=== PATIENT | female | born 1990 | race Caucasian/White ===

== ENCOUNTER 2019-04-14 20:14 | Emergency (ER) | payer OTHER ==
[~2019-04-14] VITALS: Ht 170.2 cm; Wt 117.9 kg
[~2019-04-14 20:14] MED LIST: ACET500 PO; ALBU90OI; ALBU90OI INH; ALBU90OI6 INH; CEPH500 PO; CIPR500 PO; CLIN150 PO; CLIN300 PO; CLON.1 PO; CYCL10 PO; FLINTSTONE VITAMINS; FOLI1 PO; FOLI400 PO; HYDACE25S PR; HYDACE5 PO; IBUHYD PO; KEFLEX; LAMO25 PO; LEVE500 PO; LORA2 PO; MECL25 PO; MULVITMINE; MULVITMINE PO; NAPR500 PO; NEFA100; ONDA4 PO; OXCA150; OXYACE5T PO; PARO20 PO; PHENA200 PO; PHENY100ER PO; PRENZ; PROG100 PO; PROM25 PO; RISP1; RXCLIN PO; RXCYCL10 PO; RXONDA4ODT MM; RXOXYACE PO; VITAMIN K; Verotin-Gr Cap1 EACH PO
[2019-04-14] MEDS ORDERED: ROBITUSSIN COU237 ML PO (21:12)
== END 2019-04-14 21:42 | disposition home or self-care (01) ==
LOC: ER 20:14
DX: J40 Bronchitis, not specified as acute or chronic (principal); Z88.0 Allergy status to penicillin; Z88.8 Allergy status to other drugs, medicaments and biological substances; Z88.5 Allergy status to narcotic agent; Z88.2 Allergy status to sulfonamides; Z88.1 Allergy status to other antibiotic agents; Z79.899 Other long term (current) drug therapy; E11.9 Type 2 diabetes mellitus without complications; G40.909 Epilepsy, unspecified, not intractable, without status epilepticus; J45.909 Unspecified asthma, uncomplicated
CPT/HCPCS: 71046; 99283-25

== ENCOUNTER → 2019-06-18 | Outpatient (CLI) | payer OTHER ==
[~2019-06-18] MED LIST changes: +BASAGLAR K100 UNIT/2; +DESV50; +EPIPEN0.3 MG/0.3 IM; +GLIP5ER PO; +Glucophage1000 MG PO; +OMEPRAZOLE20 MG PO; +ROBITUSSIN COU237 ML PO; +Risperdal0.5 MG PO
== END ==
LOC: LAB 17:58 → LAB SHORT 17:58 → LAB FUT 06-18 16:30
DX: R30.0 Dysuria (principal)
CPT/HCPCS: 87086; 87147

== ENCOUNTER 2019-07-08 17:52 | Emergency (ER) | payer OTHER ==
[~2019-07-08] VITALS: Ht 170.2 cm; Wt 112.0 kg
[~2019-07-08 17:52] MED LIST changes: -BASAGLAR K100 UNIT/2; -DESV50
[2019-07-08 18:43] LABS: Source, Urine Clean Catch
[2019-07-08 18:47] LABS: Bilirubin, Urine Neg (Neg); Blood, Urine Neg (Neg); Glucose Qualitative, Urine 4+ (Neg); Ketones, Urine Neg (Neg); Leukocyte Esterase, Urine Neg (Neg); Nitrite, Urine Neg (Neg); Protein, Urine Neg (Neg); Specific Gravity, Urine 1.015 (1.003-1.022); Urobilinogen, Urine NORM (Normal)
[2019-07-08 18:53] LABS: Appearance, Urine Clear (Clear); Color, Urine Pale Yellow (P-Yellow)
[2019-07-08 19:20] LABS: Base Excess Venous -3.8 mmol/L; Bicarbonate Venous 22.2 mmol/L (24.0-30.0); PCO2 Venous 30.6 mmHg (38-42); PO2 Venous 137 mmHg (38-42); pH Blood Venous 7.43 (7.34-7.37)
[2019-07-08 19:28] LABS: BASOPHILS ABSOLUTE AUTO 0.05 K/mm3 (0.00-0.23); BASOPHILS PERCENT AUTO 1 % (0-2); EOSINOPHILS ABSOLUTE AUTO 0.18 K/mm3 (0.00-0.68); EOSINOPHILS PERCENT AUTO 3 % (0-6); Hematocrit 43.9 % (33.0-51.0); Hemoglobin 14.7 g/dL (11.5-16.0); IMMATURE GRAN ABSOLUTE AUTO 0.01 K/mm3 (0.00-0.10); IMMATURE GRAN PERCENT AUTO 0 % (0-1); LYMPHOCYTES ABSOLUTE AUTO 2.58 K/mm3 (0.84-5.20); LYMPHOCYTES PERCENT AUTO 41 % (21-46); MONOCYTES ABSOLUTE AUTO 0.42 K/mm3 (0.16-1.47); MONOCYTES PERCENT AUTO 7 % (4-13); Mean Corpuscular HGB 28.5 pg (26.0-34.0); Mean Corpuscular HGB Conc 33.5 g/dL (31.5-36.5); Mean Corpuscular Volume 85 fL (80-100); Mean Platelet Volume 9.6 fL (9.1-12.4); NEUTROPHILS ABSOLUTE AUTO 3.12 K/mm3 (1.96-9.15); NEUTROPHILS PERCENT AUTO 49 % (41-73); Platelet Count 339 K/mm3 (150-400); RDW Coefficient Variation 12.4 % (11.7-14.2); RDW Standard Deviation 38.6 fL (35.1-46.3); Red Blood Cell Count 5.15 M/mm3 (3.80-5.20); White Blood Cell Count 6.36 K/mm3 (4.00-11.30)
[2019-07-08 19:38] LABS: Osmolality, Serum 307 mos/KG (275-300)
[2019-07-08 19:57] LABS: Alanine Aminotransfer (ALT/SGP 68 U/L (12-78); Albumin, Blood 3.6 g/dL (3.4-5.0); Albumin/Globulin Ratio 0.9 (0.8-1.8); Alk Phos 93 U/L (50-136); Anion Gap 12 mmol/L (6-16); Aspartate Aminotrans (AST/SGOT 43 U/L (12-37); Bilirubin, Total 0.3 mg/dL (0.1-1.0); Blood Urea Nitrogen 11 mg/dL (8-24); Bun/Creatinine Ratio 17.1 (12.0-20.0); CO2, Blood 20 mmol/L (21-32); Calcium, Blood 9.5 mg/dL (8.5-10.1); Chloride, Blood 100 mmol/L (98-108); Creatinine, Blood 0.64 mg/dL (0.40-1.00); Globulin, Blood 4.1 g/dL (2.2-4.0); Glomerular Filtration Rate >60 (60-); Sodium, Blood 132 mmol/L (136-145); Total Protein, Blood 7.7 g/dL (6.4-8.2)
[2019-07-08 20:04] LABS: Glucose, Blood 549 mg/dL (70-99)
== END 2019-07-08 23:44 | disposition home or self-care (01) ==
LOC: ER 17:52
PROVIDERS: Physician Assistant
DX: E11.65 Type 2 diabetes mellitus with hyperglycemia (principal); E86.0 Dehydration; J45.909 Unspecified asthma, uncomplicated; G40.909 Epilepsy, unspecified, not intractable, without status epilepticus; E78.00 Pure hypercholesterolemia, unspecified; Z87.442 Personal history of urinary calculi; Z88.0 Allergy status to penicillin; Z88.2 Allergy status to sulfonamides; Z88.5 Allergy status to narcotic agent; Z88.8 Allergy status to other drugs, medicaments and biological substances
CPT/HCPCS: 71046; 80053; 81003; 81025; 82803; 82947; 83930; 85025; 93005; 93010; 96361; 96374; 99284-25; J1815; J2405; J7120

== ENCOUNTER 2019-07-13 07:47 | Day surgery (SDC) | payer OTHER ==
[~2019-07-13] VITALS: Ht 170.2 cm; Wt 108.3 kg
[2019-07-13] MEDS ORDERED: DESV50 (08:38)
[2019-07-13] MEDS ORDERED: BASAGLAR K100 UNIT/2 (08:38)
--- NOTE | 2019-07-13 09:01 | NUR ---
07/13/[address] & DR. LEUNG NOTIFIED OF CBG OF 392.
== END 2019-07-13 09:15 | disposition home or self-care (01) ==
LOC: ORSCSDS 07:47
DX: K21.9 Gastro-esophageal reflux disease without esophagitis (principal); Z53.9 Procedure and treatment not carried out, unspecified reason
CPT/HCPCS: 82947; J2001; J2704; J7120

== ENCOUNTER → 2019-10-01 | Outpatient (CLI) | payer OTHER ==
[~2019-10-01] MED LIST changes: +BASAGLAR K100 UNIT/2; +DESV50
== END | disposition home or self-care (01) ==
LOC: LAB EV 11:55 → LAB SHORT 11:55
DX: B37.3 Candidiasis of vulva and vagina (principal)
CPT/HCPCS: 87070; 87147; 87205; 87529

== ENCOUNTER → 2019-11-27 | Outpatient (CLI) | payer OTHER ==
[2019-11-27 11:32] LABS: BASOPHILS ABSOLUTE AUTO 0.07 K/mm3 (0.00-0.23); BASOPHILS PERCENT AUTO 1 % (0-2); EOSINOPHILS ABSOLUTE AUTO 0.23 K/mm3 (0.00-0.68); EOSINOPHILS PERCENT AUTO 3 % (0-6); Hematocrit 43.9 % (33.0-51.0); Hemoglobin 15.2 g/dL (11.5-16.0); IMMATURE GRAN ABSOLUTE AUTO 0.01 K/mm3 (0.00-0.10); IMMATURE GRAN PERCENT AUTO 0 % (0-1); LYMPHOCYTES PERCENT AUTO 42 % (21-46); MONOCYTES ABSOLUTE AUTO 0.42 K/mm3 (0.16-1.47); MONOCYTES PERCENT AUTO 6 % (4-13); Mean Corpuscular HGB 29.5 pg (26.0-34.0); Mean Corpuscular HGB Conc 34.6 g/dL (31.5-36.5); Mean Corpuscular Volume 85 fL (80-100); Mean Platelet Volume 9.3 fL (9.1-12.4); NEUTROPHILS ABSOLUTE AUTO 3.68 K/mm3 (1.96-9.15); NEUTROPHILS PERCENT AUTO 49 % (41-73); Platelet Count 393 K/mm3 (150-400); RDW Coefficient Variation 12.4 % (11.7-14.2); RDW Standard Deviation 38.3 fL (35.1-46.3); Red Blood Cell Count 5.15 M/mm3 (3.80-5.20); White Blood Cell Count 7.61 K/mm3 (4.00-11.30)
[2019-11-27 11:42] LABS: Alanine Aminotransfer (ALT/SGP 58 U/L (12-78); Albumin, Blood 3.9 g/dL (3.4-5.0); Albumin/Globulin Ratio 0.9 (0.8-1.8); Alk Phos 86 U/L (40-126); Anion Gap 12 mmol/L (6-16); Aspartate Aminotrans (AST/SGOT 39 U/L (12-37); Bilirubin, Total 0.3 mg/dL (0.1-1.0); Blood Urea Nitrogen 18 mg/dL (8-24); Bun/Creatinine Ratio 21.4 (12.0-20.0); CO2, Blood 25 mmol/L (21-32); Calcium, Blood 9.4 mg/dL (8.5-10.1); Chloride, Blood 103 mmol/L (98-108); Creatinine, Blood 0.84 mg/dL (0.40-1.00); Globulin, Blood 4.4 g/dL (2.2-4.0); Glomerular Filtration Rate >60 (60-); Glucose, Blood 260 mg/dL (70-99); Potassium, Blood 4.2 mmol/L (3.5-5.5); Sodium, Blood 140 mmol/L (136-145); Total Protein, Blood 8.3 g/dL (6.4-8.2)
== END | disposition home or self-care (01) ==
LOC: LAB SHORT 11:28 → LAB EV 11:28
PROVIDERS: Physician Assistant
DX: R11.2 Nausea with vomiting, unspecified (principal)
CPT/HCPCS: 80053; 83690; 85025

== ENCOUNTER 2020-05-18 16:53 | Emergency (ER) | payer OTHER ==
[~2020-05-18] VITALS: Ht 170.2 cm; Wt 106.4 kg
[~2020-05-18 16:53] MED LIST changes: -DESV50
[2020-05-18 17:25] LABS: BASOPHILS ABSOLUTE AUTO 0.07 K/mm3 (0.00-0.23); BASOPHILS PERCENT AUTO 1 % (0-2); EOSINOPHILS ABSOLUTE AUTO 0.17 K/mm3 (0.00-0.68); EOSINOPHILS PERCENT AUTO 2 % (0-6); Hematocrit 46.6 % (33.0-51.0); Hemoglobin 15.8 g/dL (11.5-16.0); IMMATURE GRAN ABSOLUTE AUTO 0.02 K/mm3 (0.00-0.10); IMMATURE GRAN PERCENT AUTO 0 % (0-1); LYMPHOCYTES PERCENT AUTO 37 % (21-46); MONOCYTES ABSOLUTE AUTO 0.43 K/mm3 (0.16-1.47); MONOCYTES PERCENT AUTO 5 % (4-13); Mean Corpuscular HGB 29.6 pg (26.0-34.0); Mean Corpuscular HGB Conc 33.9 g/dL (31.5-36.5); Mean Corpuscular Volume 87 fL (80-100); Mean Platelet Volume 9.4 fL (9.1-12.4); NEUTROPHILS ABSOLUTE AUTO 4.84 K/mm3 (1.96-9.15); NEUTROPHILS PERCENT AUTO 56 % (41-73); Platelet Count 386 K/mm3 (150-400); RDW Coefficient Variation 12.3 % (11.7-14.2); RDW Standard Deviation 39.3 fL (35.1-46.3); Red Blood Cell Count 5.33 M/mm3 (3.80-5.20); White Blood Cell Count 8.73 K/mm3 (4.00-11.30)
[2020-05-18] MEDS ORDERED: CIME400 PO (17:54)
[2020-05-18 18:23] LABS: Alanine Aminotransfer (ALT/SGP 60 U/L (12-78); Albumin, Blood 3.7 g/dL (3.4-5.0); Albumin/Globulin Ratio 0.8 (0.8-1.8); Alk Phos 116 U/L (50-136); Anion Gap 9 mmol/L (6-16); Aspartate Aminotrans (AST/SGOT 44 U/L (12-37); Bilirubin, Total 0.6 mg/dL (0.1-1.0); Blood Urea Nitrogen 12 mg/dL (8-24); Bun/Creatinine Ratio 19.1 (12.0-20.0); CO2, Blood 24 mmol/L (21-32); Calcium, Blood 9.2 mg/dL (8.5-10.1); Chloride, Blood 101 mmol/L (98-108); Creatinine, Blood 0.63 mg/dL (0.40-1.00); Globulin, Blood 4.6 g/dL (2.2-4.0); Glomerular Filtration Rate >60 (60-); Glucose, Blood 403 mg/dL (70-99); Potassium, Blood 4.1 mmol/L (3.5-5.5); Sodium, Blood 134 mmol/L (136-145); Total Protein, Blood 8.3 g/dL (6.4-8.2)
[2020-05-18] MEDS ORDERED: CYCL10 PO (20:45)
[2020-05-18 20:46] LABS: Source, Urine Voided
[2020-05-18] MEDS ORDERED: ZOFRAN4 MG PO (20:47)
[2020-05-18] MEDS ORDERED: BENZONATATE100 MG PO (20:48)
[2020-05-18] MEDS ORDERED: NOVOLIN 70100 UNIT/4 SC (20:52)
[2020-05-18 20:59] LABS: Bilirubin, Urine Neg (Neg); Blood, Urine Neg (Neg); Glucose Qualitative, Urine 4+ (Neg); Ketones, Urine Neg (Neg); Leukocyte Esterase, Urine Neg (Neg); Nitrite, Urine Neg (Neg); Protein, Urine Neg (Neg); Specific Gravity, Urine 1.015 (1.003-1.022); Urobilinogen, Urine NORM (Normal)
[2020-05-18 21:02] LABS: Appearance, Urine Clear (Clear); Color, Urine Yellow (P-Yellow)
[2020-05-18] MEDS ORDERED: Ativan0.5 MG PO (21:05)
[2020-05-18] MEDS ORDERED: DESVENLAFAXINE100 MG PO (21:09)
[2020-05-18] MEDS ORDERED: Lipitor20 MG PO (21:12)
== END 2020-05-18 21:47 | disposition home or self-care (01) ==
LOC: ER 16:53
PROVIDERS: Emergency Medicine; Physician Assistant
DX: E11.65 Type 2 diabetes mellitus with hyperglycemia (principal); J45.909 Unspecified asthma, uncomplicated; Z79.4 Long term (current) use of insulin; Z79.899 Other long term (current) drug therapy; Z87.442 Personal history of urinary calculi; Z88.0 Allergy status to penicillin; Z88.5 Allergy status to narcotic agent; Z88.2 Allergy status to sulfonamides
CPT/HCPCS: 36415; 80053; 81003; 82947; 85025; 96360; 96361; 99284-25; J1815; J7030

== ENCOUNTER → 2020-09-02 | Outpatient (CLI) | payer OTHER ==
[~2020-09-02] MED LIST changes: +ATOR80 PO; +Ativan0.5 MG PO; +Ativan1 MG PO; +BASAGLAR K100 UNIT/1 SC; +BENZONATATE100 MG PO; +CIME400 PO; +DESVENLAFAXINE100 MG PO; +FLUO10 PO; +HUMALOG KW100 UNIT/1 SC; +HYDR1TAB94 PO; +LORA10ER PO; +NOVOLIN 70100 UNIT/4 SC; +REPA2 PO; +RISP1 PO; +TAMSULOSIN HCL0.4 M1 PO; +TOUJEO MAX300 UNIT/2 SC; +ZOFRAN4 MG PO
[2020-09-02 14:43] LABS: BASOPHILS ABSOLUTE AUTO 0.07 K/mm3 (0.00-0.23); BASOPHILS PERCENT AUTO 1 % (0-2); EOSINOPHILS ABSOLUTE AUTO 0.18 K/mm3 (0.00-0.68); EOSINOPHILS PERCENT AUTO 2 % (0-6); Hematocrit 47.8 % (33.0-51.0); IMMATURE GRAN ABSOLUTE AUTO 0.04 K/mm3 (0.00-0.10); IMMATURE GRAN PERCENT AUTO 1 % (0-1); LYMPHOCYTES ABSOLUTE AUTO 2.84 K/mm3 (0.84-5.20); LYMPHOCYTES PERCENT AUTO 38 % (21-46); MONOCYTES ABSOLUTE AUTO 0.46 K/mm3 (0.16-1.47); MONOCYTES PERCENT AUTO 6 % (4-13); Mean Corpuscular HGB 29.2 pg (26.0-34.0); Mean Corpuscular HGB Conc 33.5 g/dL (31.5-36.5); Mean Corpuscular Volume 87 fL (80-100); Mean Platelet Volume 10.1 fL (9.1-12.4); NEUTROPHILS ABSOLUTE AUTO 3.92 K/mm3 (1.96-9.15); NEUTROPHILS PERCENT AUTO 52 % (41-73); Platelet Count 405 K/mm3 (150-400); RDW Coefficient Variation 12.3 % (11.7-14.2); RDW Standard Deviation 39.6 fL (35.1-46.3); Red Blood Cell Count 5.48 M/mm3 (3.80-5.20); White Blood Cell Count 7.51 K/mm3 (4.00-11.30)
[2020-09-02 14:53] LABS: Alanine Aminotransfer (ALT/SGP 67 U/L (12-78); Albumin, Blood 3.7 g/dL (3.4-5.0); Albumin/Globulin Ratio 0.8 (0.8-1.8); Alk Phos 107 U/L (50-136); Anion Gap 10 mmol/L (6-16); Aspartate Aminotrans (AST/SGOT 39 U/L (12-37); Bilirubin, Total 0.4 mg/dL (0.1-1.0); Blood Urea Nitrogen 22 mg/dL (8-24); Bun/Creatinine Ratio 33.5 (12.0-20.0); CO2, Blood 22 mmol/L (21-32); Calcium, Blood 9.6 mg/dL (8.5-10.1); Chloride, Blood 100 mmol/L (98-108); Creatinine, Blood 0.66 mg/dL (0.40-1.00); Globulin, Blood 4.6 g/dL (2.2-4.0); Glomerular Filtration Rate >60 (60-); Glucose, Blood 498 mg/dL (70-99); Potassium, Blood 4.5 mmol/L (3.5-5.5); Sodium, Blood 132 mmol/L (136-145); Total Protein, Blood 8.3 g/dL (6.4-8.2)
[2020-09-02 16:47] LABS: Candida species (DNA Probe) Negative (NEGATIVE); G. vaginalis (DNA Probe) Negative (NEGATIVE); T. vaginalis (DNA Probe) Negative (NEGATIVE)
== END | disposition home or self-care (01) ==
LOC: LAB SHORT 10:50 → PLD 10:50
PROVIDERS: Family Medicine
DX: E10.65 Type 1 diabetes mellitus with hyperglycemia (principal); R10.2 Pelvic and perineal pain; B37.3 Candidiasis of vulva and vagina
CPT/HCPCS: 80053; 83036; 85025; 87077; 87086; 87186; 87480; 87510; 87660

== ENCOUNTER → 2020-10-19 | Outpatient (CLI) | payer OTHER ==
[~2020-10-19] MED LIST changes: -ATOR80 PO; -Ativan1 MG PO; -BASAGLAR K100 UNIT/1 SC; -FLUO10 PO; -HUMALOG KW100 UNIT/1 SC; -HYDR1TAB94 PO; -LORA10ER PO; +Lipitor20 MG PO; -REPA2 PO; -RISP1 PO; -TAMSULOSIN HCL0.4 M1 PO; -TOUJEO MAX300 UNIT/2 SC
== END ==
LOC: LAB SHORT 08:22
DX: J02.9 Acute pharyngitis, unspecified (principal)
CPT/HCPCS: 87081; 87147

== ENCOUNTER → 2020-11-11 | Outpatient (CLI) | payer OTHER ==
[~2020-11-11] MED LIST changes: +ATOR80 PO; +Ativan1 MG PO; +BASAGLAR K100 UNIT/1 SC; +FLUO10 PO; +HUMALOG KW100 UNIT/1 SC; +HYDR1TAB94 PO; +LORA10ER PO; -Lipitor20 MG PO; +REPA2 PO; +RISP1 PO; +TAMSULOSIN HCL0.4 M1 PO; +TOUJEO MAX300 UNIT/2 SC
[2020-11-13 14:50] LABS: Adenovirus F 40/41 Not Detected (NOT DETECT); Astrovirus Not Detected (NOT DETECT); Campylobacter Sp Not Detected (NOT DETECT); Cryptosporidium Not Detected (NOT DETECT); Cyclospora Cayetanensis Not Detected (NOT DETECT); E. Coli O157 Not Detected (NOT DETECT); Entamoeba Histolytica Not Detected (NOT DETECT); Enteroaggregative E. coli-EAEC Not Detected (NOT DETECT); Enteropathogenic E. coli-EPEC Not Detected (NOT DETECT); Enterotoxigenic E. coli-ETEC Not Detected (NOT DETECT); Giardia Lamblia Not Detected (NOT DETECT); Norovirus GI/GII Not Detected (NOT DETECT); Plesiomonas Shigelloides Not Detected (NOT DETECT); Rotavirus A Not Detected (NOT DETECT); Salmonella Sp Not Detected (NOT DETECT); Sapovirus Not Detected (NOT DETECT); Shiga Toxin-prod E. coli-STEC Not Detected (NOT DETECT); Shigella/Enteroin E. coli-EIEC Not Detected (NOT DETECT); Vibrio Cholerae Not Detected (NOT DETECT); Vibrio Sp Not Detected (NOT DETECT); Yersinia Enterocolitica Not Detected (NOT DETECT)
== END | disposition home or self-care (01) ==
LOC: LAB SHORT 07:00 → LAB 07:00
PROVIDERS: Nurse Practitioner Family
DX: R19.7 Diarrhea, unspecified (principal)
CPT/HCPCS: 0097U; 83993

== ENCOUNTER 2020-11-19 11:55 | Emergency (ER) | payer OTHER ==
[~2020-11-19] VITALS: Ht 167.6 cm; Wt 104.3 kg
[~2020-11-19 11:55] MED LIST changes: -Ativan1 MG PO; -BASAGLAR K100 UNIT/1 SC; -FLUO10 PO; -HUMALOG KW100 UNIT/1 SC; -HYDR1TAB94 PO; -LORA10ER PO; -REPA2 PO; -RISP1 PO; -TAMSULOSIN HCL0.4 M1 PO; -TOUJEO MAX300 UNIT/2 SC
[2020-11-19 12:24] LABS: BASOPHILS ABSOLUTE AUTO 0.08 K/mm3 (0.00-0.23); BASOPHILS PERCENT AUTO 1 % (0-2); EOSINOPHILS ABSOLUTE AUTO 0.15 K/mm3 (0.00-0.68); EOSINOPHILS PERCENT AUTO 2 % (0-6); Hematocrit 47.7 % (33.0-51.0); Hemoglobin 16.8 g/dL (11.5-16.0); IMMATURE GRAN ABSOLUTE AUTO 0.03 K/mm3 (0.00-0.10); IMMATURE GRAN PERCENT AUTO 0 % (0-1); LYMPHOCYTES PERCENT AUTO 35 % (21-46); MONOCYTES ABSOLUTE AUTO 0.43 K/mm3 (0.16-1.47); MONOCYTES PERCENT AUTO 5 % (4-13); Mean Corpuscular HGB 29.9 pg (26.0-34.0); Mean Corpuscular HGB Conc 35.2 g/dL (31.5-36.5); Mean Corpuscular Volume 85 fL (80-100); Mean Platelet Volume 9.4 fL (9.1-12.4); NEUTROPHILS ABSOLUTE AUTO 4.53 K/mm3 (1.96-9.15); NEUTROPHILS PERCENT AUTO 56 % (41-73); Platelet Count 402 K/mm3 (150-400); RDW Coefficient Variation 12.1 % (11.7-14.2); RDW Standard Deviation 37.3 fL (35.1-46.3); Red Blood Cell Count 5.62 M/mm3 (3.80-5.20); White Blood Cell Count 8.02 K/mm3 (4.00-11.30)
[2020-11-19 12:42] LABS: Alanine Aminotransfer (ALT/SGP 73 U/L (12-78); Albumin/Globulin Ratio 0.8 (0.8-1.8); Alk Phos 106 U/L (50-136); Anion Gap 7 mmol/L (6-16); Aspartate Aminotrans (AST/SGOT 59 U/L (12-37); Bilirubin, Total 0.2 mg/dL (0.1-1.0); Blood Urea Nitrogen 10 mg/dL (8-24); Bun/Creatinine Ratio 14.9 (12.0-20.0); CO2, Blood 25 mmol/L (21-32); Calcium, Blood 10.1 mg/dL (8.5-10.1); Chloride, Blood 101 mmol/L (98-108); Creatinine, Blood 0.67 mg/dL (0.40-1.00); Globulin, Blood 4.8 g/dL (2.2-4.0); Glomerular Filtration Rate >60 (60-); Glucose, Blood 363 mg/dL (70-99); Potassium, Blood 3.9 mmol/L (3.5-5.5); Sodium, Blood 133 mmol/L (136-145); Total Protein, Blood 8.8 g/dL (6.4-8.2)
[2020-11-19] MEDS ORDERED: BASAGLAR K100 UNIT/1 SC ×2 (14:22)
[2020-11-19] MEDS ORDERED: REPA2 PO (14:23)
[2020-11-19] MEDS ORDERED: RISP1 PO (14:24)
[2021-01-10] MEDS ORDERED: FLUO10 PO (09:23)
[2021-01-10] MEDS ORDERED: HYDR1TAB94 PO (11:06)
[2021-01-18] MEDS ORDERED: TAMSULOSIN HCL0.4 M1 PO (21:36)
[2021-01-18] MEDS ORDERED: TOUJEO MAX300 UNIT/2 SC (21:41)
[2021-01-18] MEDS ORDERED: HUMALOG KW100 UNIT/1 SC (21:42)
[2021-01-18] MEDS ORDERED: LORA10ER PO (21:43)
[2021-01-18] MEDS ORDERED: Ativan1 MG PO (23:11)
== END 2020-11-19 15:35 | disposition home or self-care (01) ==
LOC: ER 11:55
PROVIDERS: Physician Assistant
DX: E11.65 Type 2 diabetes mellitus with hyperglycemia (principal); Z79.899 Other long term (current) drug therapy; Z79.4 Long term (current) use of insulin; Z88.0 Allergy status to penicillin; Z88.8 Allergy status to other drugs, medicaments and biological substances; Z88.5 Allergy status to narcotic agent
CPT/HCPCS: 36415; 80053; 82947; 85025; 87077; 87086; 87186; 99283

== ENCOUNTER → 2021-01-07 | Outpatient (CLI) | payer OTHER ==
[~2021-01-07] MED LIST changes: -ATOR80 PO; +BASAGLAR K100 UNIT/1 SC; +FLUO10 PO; +HYDR1TAB94 PO; +Lipitor20 MG PO; +REPA2 PO; +RISP1 PO
== END | disposition home or self-care (01) ==
LOC: LAB 13:50 → LAB SHORT 13:50
DX: R30.0 Dysuria (principal)
CPT/HCPCS: 87077; 87086; 87186

== ENCOUNTER 2021-04-03 17:58 | Emergency (ER) | payer OTHER ==
[~2021-04-03] VITALS: Ht 167.6 cm; Wt 103.0 kg
[~2021-04-03 17:58] MED LIST changes: -Tessalon Perle100 MG PO
[2021-04-03 18:45] LABS: Source, Urine Clean Catch
[2021-04-03 18:49] LABS: BASOPHILS ABSOLUTE AUTO 0.06 K/mm3 (0.00-0.23); BASOPHILS PERCENT AUTO 1 % (0-2); EOSINOPHILS ABSOLUTE AUTO 0.12 K/mm3 (0.00-0.68); EOSINOPHILS PERCENT AUTO 2 % (0-6); Hemoglobin 14.7 g/dL (11.5-16.0); IMMATURE GRAN ABSOLUTE AUTO 0.01 K/mm3 (0.00-0.10); IMMATURE GRAN PERCENT AUTO 0 % (0-1); LYMPHOCYTES ABSOLUTE AUTO 2.49 K/mm3 (0.84-5.20); LYMPHOCYTES PERCENT AUTO 38 % (21-46); MONOCYTES ABSOLUTE AUTO 0.45 K/mm3 (0.16-1.47); MONOCYTES PERCENT AUTO 7 % (4-13); Mean Corpuscular HGB 29.5 pg (26.0-34.0); Mean Corpuscular Volume 84 fL (80-100); Mean Platelet Volume 9.5 fL (9.1-12.4); NEUTROPHILS ABSOLUTE AUTO 3.46 K/mm3 (1.96-9.15); NEUTROPHILS PERCENT AUTO 53 % (41-73); Platelet Count 355 K/mm3 (150-400); RDW Coefficient Variation 11.8 % (11.7-14.2); RDW Standard Deviation 35.9 fL (35.1-46.3); Red Blood Cell Count 4.98 M/mm3 (3.80-5.20); White Blood Cell Count 6.59 K/mm3 (4.00-11.30)
[2021-04-03 19:04] LABS: Appearance, Urine Clear (Clear); Bilirubin, Urine Neg (Neg); Blood, Urine Neg (Neg); Color, Urine Yellow (P-Yellow); Glucose Qualitative, Urine 4+ (Neg); Ketones, Urine Neg (Neg); Leukocyte Esterase, Urine Neg (Neg); Nitrite, Urine Neg (Neg); Protein, Urine Neg (Neg); Urobilinogen, Urine NORM (Normal)
[2021-04-03 19:22] LABS: Alanine Aminotransfer (ALT/SGP 45 U/L (12-78); Albumin, Blood 3.4 g/dL (3.4-5.0); Albumin/Globulin Ratio 0.8 (0.8-1.8); Alk Phos 101 U/L (50-136); Anion Gap 12 mmol/L (6-16); Aspartate Aminotrans (AST/SGOT 39 U/L (12-37); Bilirubin, Total 0.2 mg/dL (0.1-1.0); Blood Urea Nitrogen 12 mg/dL (8-24); Bun/Creatinine Ratio 19.6 (12.0-20.0); CO2, Blood 20 mmol/L (21-32); Chloride, Blood 99 mmol/L (98-108); Creatinine, Blood 0.61 mg/dL (0.40-1.00); Globulin, Blood 4.2 g/dL (2.2-4.0); Glomerular Filtration Rate >60 (60-); Glucose, Blood 541 mg/dL (70-99); Potassium, Blood 4.2 mmol/L (3.5-5.5); Sodium, Blood 131 mmol/L (136-145); Total Protein, Blood 7.6 g/dL (6.4-8.2)
[2021-04-03 23:11] LABS: Troponin I <0.015 ng/mL (0.000-0.040)
[2021-04-03 23:28] LABS: Base Excess Venous 2.8 mmol/L; Bicarbonate Venous 25.7 mmol/L (24.0-30.0); PCO2 Venous 47.2 mmHg (38-42); PO2 Venous 46.2 mmHg (38-42); pH Blood Venous 7.38 (7.34-7.37)
[2021-04-04] MEDS ORDERED: Tessalon Perle100 MG PO (01:35)
== END 2021-04-04 01:59 | disposition home or self-care (01) ==
LOC: ER 17:58
PROVIDERS: Physician Assistant; Student in an Organized Health Care Education/Training Program
DX: E11.65 Type 2 diabetes mellitus with hyperglycemia (principal); B34.9 Viral infection, unspecified; I25.2 Old myocardial infarction; J45.909 Unspecified asthma, uncomplicated; G40.909 Epilepsy, unspecified, not intractable, without status epilepticus; Z88.0 Allergy status to penicillin; Z88.2 Allergy status to sulfonamides; Z88.5 Allergy status to narcotic agent; Z88.8 Allergy status to other drugs, medicaments and biological substances; Z79.899 Other long term (current) drug therapy; Z79.4 Long term (current) use of insulin
CPT/HCPCS: 80053; 81003; 82803; 82947; 84484; 84703; 85025; 93005; 93010; 99283-25; J1815; J7030

== ENCOUNTER → 2021-04-03 | Outpatient (CLI) | payer OTHER ==
[~2021-04-03] MED LIST changes: +ATOR80 PO; +Ativan1 MG PO; +HUMALOG KW100 UNIT/1 SC; +LORA10ER PO; -Lipitor20 MG PO; +TAMSULOSIN HCL0.4 M1 PO; +TOUJEO MAX300 UNIT/2 SC; +Tessalon Perle100 MG PO
[2021-04-03 16:55] LABS: BASOPHILS ABSOLUTE AUTO 0.04 K/mm3 (0.00-0.23); BASOPHILS PERCENT AUTO 1 % (0-2); EOSINOPHILS ABSOLUTE AUTO 0.12 K/mm3 (0.00-0.68); EOSINOPHILS PERCENT AUTO 2 % (0-6); Hematocrit 45.9 % (33.0-51.0); Hemoglobin 15.9 g/dL (11.5-16.0); IMMATURE GRAN ABSOLUTE AUTO 0.03 K/mm3 (0.00-0.10); IMMATURE GRAN PERCENT AUTO 1 % (0-1); LYMPHOCYTES ABSOLUTE AUTO 2.19 K/mm3 (0.84-5.20); LYMPHOCYTES PERCENT AUTO 34 % (21-46); MONOCYTES ABSOLUTE AUTO 0.43 K/mm3 (0.16-1.47); MONOCYTES PERCENT AUTO 7 % (4-13); Mean Corpuscular HGB 29.2 pg (26.0-34.0); Mean Corpuscular HGB Conc 34.6 g/dL (31.5-36.5); Mean Corpuscular Volume 84 fL (80-100); Mean Platelet Volume 9.5 fL (9.1-12.4); NEUTROPHILS ABSOLUTE AUTO 3.66 K/mm3 (1.96-9.15); NEUTROPHILS PERCENT AUTO 57 % (41-73); Platelet Count 367 K/mm3 (150-400); Red Blood Cell Count 5.44 M/mm3 (3.80-5.20); White Blood Cell Count 6.47 K/mm3 (4.00-11.30)
[2021-04-03 17:18] LABS: Alanine Aminotransfer (ALT/SGP 48 U/L (12-78); Albumin, Blood 3.8 g/dL (3.4-5.0); Albumin/Globulin Ratio 0.8 (0.8-1.8); Alk Phos 117 U/L (40-126); Anion Gap 16 mmol/L (6-16); Bilirubin, Total 0.2 mg/dL (0.1-1.0); Blood Urea Nitrogen 11 mg/dL (8-24); Bun/Creatinine Ratio 8.7 (12.0-20.0); CO2, Blood 21 mmol/L (21-32); Calcium, Blood 9.8 mg/dL (8.5-10.1); Chloride, Blood 91 mmol/L (98-108); Creatinine, Blood 1.26 mg/dL (0.40-1.00); Globulin, Blood 4.8 g/dL (2.2-4.0); Glomerular Filtration Rate 49 (60-); Potassium, Blood 4.2 mmol/L (3.5-5.5); Sodium, Blood 128 mmol/L (136-145); Total Protein, Blood 8.6 g/dL (6.4-8.2)
[2021-04-03 17:31] LABS: Troponin I <0.017 ng/mL (0.000-0.040)
[2021-04-03 18:53] LABS: Aspartate Aminotrans (AST/SGOT 47 U/L (12-37); Glucose, Blood 654 mg/dL (70-99)
== END | disposition home or self-care (01) ==
LOC: LAB 16:50 → LAB SHORT 16:50
PROVIDERS: Physician Assistant
DX: R07.9 Chest pain, unspecified (principal)
CPT/HCPCS: 80053; 84484; 85025

== ENCOUNTER 2021-07-21 20:12 | Emergency (ER) | payer OTHER ==
[~2021-07-21] VITALS: Ht 167.6 cm; Wt 90.7 kg
[~2021-07-21 20:12] MED LIST changes: +Tessalon Perle100 MG PO
== END 2021-07-21 21:20 | disposition home or self-care (01) ==
LOC: ER 20:12
DX: U07.1 COVID-19 (principal); E11.9 Type 2 diabetes mellitus without complications; Z79.4 Long term (current) use of insulin; Z88.0 Allergy status to penicillin; Z88.2 Allergy status to sulfonamides; Z88.5 Allergy status to narcotic agent
CPT/HCPCS: 99283

== ENCOUNTER 2024-06-21 05:59 | Emergency (ER) | payer OTHER ==
[~2024-06-21] VITALS: Ht 160 cm; Wt 102.1 kg
[~2024-06-21 05:59] MED LIST changes: +AMOCLA875 PO
[2024-06-21] MEDS ORDERED: Methocarbamol 500 MG Tab PO ONE (07:05)
[2024-06-21] MEDS ORDERED: Acetaminophen 500 MG Tab PO ONE (07:05)
[2024-06-21] MEDS ORDERED: Ketorolac Tromethamine 30mg Vial IV ONE (07:05)
[2024-06-21] MEDS ORDERED: Morphine Sulfate 4 MG/1 ML Injection IV ONE (08:20)
[2024-06-21] MEDS ORDERED: HYDROmorphone HCl/Pf 1MG SYR IV ONE (10:10)
[2024-06-21] MEDS ORDERED: Cyclobenzaprine HCl 10 MG Tab PO ONE (10:10)
[2024-06-21] MEDS ORDERED: PRAZ1 PO (10:33)
[2024-06-21] MEDS ORDERED: GABA300 PO (10:33)
[2024-06-21] MEDS ORDERED: ATOR10 PO (10:34)
[2024-06-21] MEDS ORDERED: ZYRTEC10 M2 PO (10:34)
[2024-06-21] MEDS ORDERED: NITR.4SL SL (10:34)
[2024-06-21] MEDS ORDERED: CLOMIPRAMINE HC75 M1 PO (10:34)
[2024-06-21] MEDS ORDERED: ONDA4ODT MM (10:34)
[2024-06-21] MEDS ORDERED: SERT50 PO (10:35)
[2024-06-21] MEDS ORDERED: CYCL10 PO (10:35)
[2024-06-21] MEDS ORDERED: PANT40 PO (10:35)
[2024-06-21] MEDS ORDERED: MONT10T PO (10:35)
[2024-06-21] MEDS ORDERED: MOUNJARO15 MG/0.5 SC (10:35)
[2024-06-21] MEDS ORDERED: Adderall Xr 2020 MG PO (10:36)
[2024-06-21] MEDS ORDERED: LORazepam 2 MG/ML 1ML Injection IV ONE (11:50)
[2024-06-21 13:20] VITALS: BP 130/90
== END 2024-06-21 13:33 | disposition home or self-care (01) ==
LOC: ER 05:59
DX: S09.90XA Unspecified injury of head, initial encounter (principal); S29.012A Strain of muscle and tendon of back wall of thorax, initial encounter; M54.2 Cervicalgia; E78.5 Hyperlipidemia, unspecified; K21.9 Gastro-esophageal reflux disease without esophagitis; E11.9 Type 2 diabetes mellitus without complications; V89.2XXA Person injured in unspecified motor-vehicle accident, traffic, initial encounter; Z79.4 Long term (current) use of insulin; Z79.899 Other long term (current) drug therapy; Z88.5 Allergy status to narcotic agent; Z88.0 Allergy status to penicillin; Z91.013 Allergy to seafood; Z88.8 Allergy status to other drugs, medicaments and biological substances
CPT/HCPCS: 70450; 72125; 72141; 73030; 82947; 93005; 93010; 96374; 96375; 99285-25; A9270; J1171; J1885; J2060; J2270